=== PATIENT | female | born 1945 | race Caucasian/White ===

== ENCOUNTER 2020-04-17 08:09 | Inpatient (IN) | payer OTHER ==
[2020-04-13 15:22] VITALS: BMI 19.6
--- NOTE | 2020-04-17 07:55 | HP ---
Satellite [facility] - Chief Complaint Chief Complaint: right hip pain - Past Medical History Allergies/Adverse Reactions: Allergies Allergy/AdvReac Type Severity Reaction Status Date / Time Penicillins Allergy Severe Difficulty Verified 04/13/20 15:11 Breathing - Current Medications Current Medications: Home Medications Medication Instructions Recorded Calcium Carbonate [Calcium] 500 mg PO DAILY 04/13/20 Multivitamins [Tab-A-Vit -] 1 tab PO DAILY 04/13/20 Triamterene/Hydrochlorothiazid 1 each PO DAILY 04/13/20 [Dyazide 37.5-25 Capsule] Satellite Physical Exam - Physical Examination General Appearance: Well Nourished, Well Developed, Alert & Oriented x3 ENT: Clear Lung: Normal air movement Extremities: Other (right hip- + ttp ,decr rom ,nvi, xrays show grade 4 hip djd) Neurological: Intact, Alert, Oriented Satellite Impression/Plan - Impression/Plan Impression: right hip djd Operative Procedure: right rupinder thr Date to be Performed: 04/17/20
[~2020-04-17 08:09] MED LIST: CEFAZOLIN 2 GM in DEXTROSE 5%-WATER - 50 ML IVPB ONE; CELECOXIB 200 MG CAPSULE PO ONE; TRANEXAMIC ACID 1000 MG/10 ML VIAL IVPUSH ONE
--- OUTSIDE RECORDS SUMMARY | 2020-04-17 08:13 | XMS ---
:1945 Author Organization [facility] Support Name Relationship Address Phone NONE, [place] [address] [place] Unavailable [address] [place] [address] CALL, SANCHEZ [place] [address] Re-disclosure Warning The records that you are about to access may contain information from federally- assisted alcohol or drug abuse programs. If such information is present, then the following federally mandated warning applies: This information has been disclosed to you from records protected by federal confidentiality rules (42 CFR part 2). The federal rules prohibit you from making any further disclosure of this information unless further disclosure is expressly permitted by the written consent of the person to whom it pertains or as otherwise permitted by 42 CFR part 2. A general authorization for the release of medical or other information is NOT sufficient for this purpose. The Federal rules restrict any use of the information to criminally investigate or prosecute any alcohol or drug abuse patient.The records that you are about to access may contain highly sensitive health information, the redisclosure of which is protected by Article 27-F of the [facility] Public Health law. If you continue you may haveaccess to information: Regarding HIV / AIDS; Provided by facilities licensed or operated by the [facility] Office of Mental Health; or Provided by the [facility] Office for People With Developmental Disabilities. If such information is present, then the following [facility] mandated warning applies: This information has been disclosed to you from confidential records which are protected by state law. State law prohibits you from making any further disclosure of this information without the specific written consent of the person to whom it pertains, or as otherwise permitted by law. Any unauthorized further disclosure in violation of state law may result in a fine or detention sentence or both. A general authorization for the release of medical or other information is NOT sufficient authorization for further disclosure. Insurance Providers Payer name Policy type Policy ID Covered Covered republican's Policy P medina / Coverage republican ID relationship to Gilli[employer] Inf ormation type gilliam LOCAL [id number] - [id number] [facility] [id number] [facility] Results ID Date Data Source [id number] 04/13/2020 12:10:00 PM EDT [facility] Name Value Range Interpretation Description Data Sup porting Code Source(s) Document(s ) SARS [facility] coronavirus 2 RNA This lab was ordered by [facility] and reported by [facility]. Procedure
[2020-04-17] MEDS ORDERED: ePHEDrine SULFATE 50 MG/1 ML AMPULE ONE (08:23)
[2020-04-17] MEDS ORDERED: SUCCINYLCHOLINE CHLORIDE 200 MG/10 ML SYRINGE ONE (08:23)
[2020-04-17] MEDS ORDERED: DEXAMETHASONE SOD PHOSPHATE 4 MG/1 ML VIAL ONE ×2 (08:23→10:15)
[2020-04-17] MEDS ORDERED: ONDANSETRON 4 MG/2 ML VIAL ONE ×2 (08:23→10:15)
[2020-04-17] MEDS ORDERED: PHENYLEPHRINE HCL 10 MG/1 ML SINGLE DOSE VIAL ONE ×2 (08:23→08:29)
[2020-04-17] MEDS ORDERED: ceFAZolin SODIUM 1 GM VIAL ONE ×2 (08:24→08:31)
[2020-04-17] MEDS ORDERED: SODIUM CHLORIDE 0.9% P/F 10 ML VIAL IJ ONE (08:24)
[2020-04-17] MEDS ORDERED: VANCOMYCIN 1,000 MG VIAL (RESTRICTED TO ID ONLY) ONE (08:31)
[2020-04-17] MEDS ORDERED: BUPIVACAINE HCL/PF 0.5% (5 MG/ML) 30 ML VIAL IJ ONE (08:59)
[2020-04-17] MEDS ORDERED: MIDAZOLAM HCL 2 MG/2 ML SINGLE DOSE VIAL ONE (08:59)
[2020-04-17] MEDS ORDERED: EPINEPHrine/PF 1 MG/1 ML (1:1,000) AMPULE ONE (08:59)
[2020-04-17] MEDS ORDERED: ONDANSETRON 4 MG/2 ML VIAL IVPUSH PRN (09:38)
[2020-04-17] MEDS ORDERED: MAG HYDROX/AL HYDROX/SIMETH 30 ML UNIT-DOSE CUP PO PRN (09:38)
[2020-04-17] MEDS ORDERED: MAGNESIUM HYDROX 2400MG/30ML ORAL SUSPENSION 30 ML CUP PO PRN (09:38)
[2020-04-17] MEDS ORDERED: LACTATED RINGERS SOLUTION 1,000 ML IV SCH (09:45)
[2020-04-17] MEDS ORDERED: TRANEXAMIC ACID 1000 MG/10 ML VIAL ONE (10:15)
[2020-04-17] MEDS ORDERED: VANCOMYCIN 1,000 MG VIAL (RESTRICTED TO ID ONLY) IVPB ONE (10:20)
--- NOTE | 2020-04-17 11:04 | OP ---
Operative Note - Note: Operative Date: 04/17/20 (taisha) Pre-Operative Diagnosis: right hip djd Operation: right rupinder thr Post-Operative Diagnosis: Same as Pre-op Surgeon: Aris Rubio Substation Operator Apprentice: Shahab Richardson Anesthesiologist/ROLLED GLASS CROSSCUTTER: Barney Allen Anesthesia: Spinal, Local Specimens Removed: femoral head Estimated Blood Loss (mls): 50
[2020-04-17] MEDS ORDERED: traMADol HCL 50 MG TABLET PO PRN (11:48)
[2020-04-17] MEDS ORDERED: oxyCODONE HCL 5 MG TABLET PO PRN ×2 (11:48)
[2020-04-17] MEDS: TRIAMTERENE AND HCTZ - 37.5 MG/25 MG CAPSULE PO SCH (13:13)
[2020-04-17] MEDS: ACETAMINOPHEN 325 MG TABLET (FP) PO SCH ×2 (13:13→23:00)
--- NOTE | 2020-04-17 16:29 | SPEC ---
DATE OF OPERATION: 04/17/2020 PREOPERATIVE DIAGNOSIS: Degenerative joint disease right hip. POSTOPERATIVE DIAGNOSIS: Degenerative joint disease right hip. PROCEDURE PERFORMED: Right total hip replacement with robotic-assisted navigation (MAKOplasty). SURGICAL ATTENDING: Aris Rubio MD MANAGER TRAINING: ELMER Thompson ANESTHESIA: Regional and spinal. CLOSURE: A [place] total hip system with a 52-mm Trident II press-fit acetabular shell, a number 6 Accolade II femoral stem and a ceramic MDM insert. Number 1 Vicryl for fascia, 0 and 2-0 subcutaneous, 3-0 V-Loc for skin, 4-0 undyed Vicryl for pin sites. ESTIMATED BLOOD LOSS: Less than 100 mL. COMPLICATIONS: None. CONDITION: To the recovery room in stable condition. DESCRIPTION OF PROCEDURE: The patient was taken to the operating room on April 17, 2020. General and regional anesthesia was administered by the anesthesiologist. IV Kefzol and TXA were administered prophylactically prior to the case. The patient was placed in the lateral decubitus position will all prominences well-padded. The right hip area was prepped and draped in the usual sterile fashion. Using 3 small stab incisions over the iliac crest, 3 threaded pins were drilled in power fashion through the 2 tables of the crest. These pins were fastened and the navigation array for the CAROL navigation system. Next, a 12 to 15-cm curved longitudinal incision over the posterolateral aspect of the greater trochanter was incised. Hemostasis was achieved with Bovie cautery. Sharp dissection was carried down to level of the fascia. The fascia was opened the entire length of the incision, spreading the fibers of the gluteus roman in the direction of origin. A Charnley retractor was placed in this layer. Care was taken not to impale the sciatic nerve. The short external rotators were detached off the insertion of the greater trochanter and peeled off the capsule. A posterior capsulotomy was then performed. A check point was malleted into the greater trochanter and a point on the inferior pole of the patella was obtained as well. These 2 points were used to assess the preoperative offset and limb lengths of the hip. The hip was then dislocated. The femoral neck was then osteotomized down to the appropriate level as directed by the navigation device. Anterior and posterior retractors were placed, exposing the acetabulum. A circumferential labral excision was performed. A check point was malleted into the acetabulum as well. Multiple sites inside the acetabulum and around the rim were utilized to register the acetabulum with the navigation device. An excellent registration of less than 0.5 mm was obtained. The hip was then reamed with the appropriate reamer down to the appropriate depth, with the appropriate orientation and version as assessed on our preoperative plan for this patient. The reamer was removed and the acetabulum was inspected to have good bleeding surfaces throughout. The real acetabular cup was then malleted down into place, with the holes in the appropriate position, until an excellent fixation was obtained. No screws were necessary. The navigation device ensured appropriate orientation and version, with the depth as predetermined. The appropriate liner was then clipped into place. Attention was directed to the femur. The proximal femur was prepared by use a box chisel, a canal finder and serial broaches until the broach achieved excellent rigidity in the proximal femur with the appropriate version being applied. A calcar planer was used to smooth off the calcar flush with the trial components. A trial reduction with the appropriate head was done, and the hip was reduced. The hip was taken through a range of motion from full extension with external rotation to marked flexion, and was stable at 90 degrees of flexion. It was stable to marked abduction and internal rotation, with a positive hang test and negative telescoping. Limb lengths were ascertained visually as well as with the navigation device to be within the targeted range for this patient. The trial component was removed. The real component was then malleted into place. The head was cold welded to the trunnion, and the hip was reduced. Range of motion, stability and limb lengths were as described in the trial component. Then the hip was pulse antibiotic irrigated. Vancomycin powder was placed in the hip joint. The capsule was closed. The fascia was then closed as well using number 1 Vicryl interrupted suture, 0 and 2-0 subcutaneous, and 3-0 V-Loc for the skin. 4-0 undyed Vicryl was used to close the pin sites after the pins were removed. All check points were also removed. Sterile Aquacel dressing was applied. The patient was awakened from anesthesia and transferred into the supine position. Bilateral SCDs and an abduction pillow were placed. X-rays revealed excellent position of the components. The patient was transferred to the recovery room in stable condition, with no complications. Estimated blood loss was less than 100 mL. Mirella [id number]
[2020-04-17] MEDS: CEFAZOLIN 2 GM/D5W 2 GRAM/50 ML ML IVPB SCH (17:44)
[2020-04-17] MEDS: SENNOSIDES/DOCUSATE COMBO (SENNA PLUS) TABLET (UD) PO SCH (21:13)
[2020-04-18] MEDS: CEFAZOLIN 2 GM/D5W 2 GRAM/50 ML ML IVPB SCH (01:23)
[2020-04-18] MEDS: ACETAMINOPHEN 325 MG TABLET (FP) PO SCH ×4 (05:34→17:59)
[2020-04-18 08:16] LABS: HEMATOCRIT 35.1 % (32.4-45.2); HEMOGLOBIN 11.7 GM/dl (10.7-15.3); MCH 30.8 pg (25.7-33.7); MCHC 33.3 g/dl (32.0-36.0); MEAN CELL VOLUME 92.5 fl (80-96); MEAN PLT VOLUME 8.6 fl (7.5-11.1); PLATELET COUNT 202 K/MM3 (134-434); RDW 12.1 % (11.6-15.6); WHITE BLOOD COUNT 17.5 K/mm3 (4.0-10.8)
[2020-04-18] MEDS: SENNOSIDES/DOCUSATE COMBO (SENNA PLUS) TABLET (UD) PO SCH ×3 (08:28→21:42)
[2020-04-18] MEDS: MULTIVITAMINS (DAILY MVI) TABLET (FP) PO SCH ×2 (08:29→09:31)
[2020-04-18] MEDS: PANTOPRAZOLE 40 MG TABLET PO SCH ×2 (08:29→09:30)
--- NOTE | 2020-04-18 08:39 | PN ---
Progress Note (short form) - Note Progress Note: Ortho Pt seen and examined s/p right rupinder thr pod #1 Selected Entries 04/18/20 06:00 Temperature 97.9 F Pulse Rate 65 Respiratory 18 Rate Blood Pressure 104/50 L Laboratory Tests 04/18/20 06:55 WBC 17.5 H Hgb 11.7 Hct 35.1 Plt Count 202 dressing c/d/i, calf soft, nt nvi a/p PT hip precautions dvt ppx pain control d/c home tomorrow if stable
[2020-04-18] MEDS: TRIAMTERENE AND HCTZ - 37.5 MG/25 MG CAPSULE PO SCH (09:29)
[2020-04-18] MEDS: ASPIRIN 325 MG TABLET PO SCH (09:29)
--- NOTE | 2020-04-18 15:14 | PN ---
Progress Note (short form) - Note Progress Note: 74F POD1 s/p R THR under spinal anesthetic with peripheral nerve blocks. Pt states that pain is well controlled and reports no anesthetic complications. Continue current regimen.
[2020-04-19] MEDS: ACETAMINOPHEN 325 MG TABLET (FP) PO SCH ×5 (02:32→18:45)
[2020-04-19 07:40] LABS: HEMATOCRIT 36.8 % (32.4-45.2); HEMOGLOBIN 12.3 GM/dl (10.7-15.3); MCH 31.1 pg (25.7-33.7); MCHC 33.5 g/dl (32.0-36.0); MEAN CELL VOLUME 92.9 fl (80-96); MEAN PLT VOLUME 8.1 fl (7.5-11.1); PLATELET COUNT 202 K/MM3 (134-434); RBC 3.97 M/mm3 (3.60-5.2); RDW 12.2 % (11.6-15.6)
[2020-04-19] MEDS: ASPIRIN 325 MG TABLET PO SCH (08:44)
--- NOTE | 2020-04-19 09:10 | PN ---
Progress Note (short form) - Note Progress Note: Ortho Pt seen and examined s/p right rupinder thr pod #2. Pt feeling drowsy after taking oxycodone. Denies KONG, SOB, CP, N/V Selected Entries 04/18/20 06:00 Temperature 97.9 F Pulse Rate 65 Respiratory 18 Rate Blood Pressure 104/50 L Laboratory Tests 04/18/20 06:55 WBC 17.5 H Hgb 11.7 Hct 35.1 Plt Count 202 dressing c/d/i, calf soft, nt nvi a/p PT hip precautions dvt ppx pain control d/c home today if stable
[2020-04-19] MEDS: TRIAMTERENE AND HCTZ - 37.5 MG/25 MG CAPSULE PO SCH (09:52)
[2020-04-19] MEDS: PANTOPRAZOLE 40 MG TABLET PO SCH (09:53)
[2020-04-19] MEDS: MULTIVITAMINS (DAILY MVI) TABLET (FP) PO SCH (09:53)
[2020-04-19] MEDS: SENNOSIDES/DOCUSATE COMBO (SENNA PLUS) TABLET (UD) PO SCH ×2 (09:53→21:01)
--- NOTE | 2020-04-19 12:46 | PATH ---
Surgical Pathology Report Patient Name: ETHAN SELF Med. Rec. #: [id number] /Age/Gender: 1945 (Age: 74) / F Account: [id number] Location: [facility] MED-SURG Taken: 04/17/2020 Received: 04/17/2020 Reported: 04/19/2020 Physicians: Aris Rubio M.D. Specimen(s) Received RIGHT FEMORAL HEAD Clinical History Right hip osteoarthritis Final Diagnosis BONE, FEMORAL HEAD, RIGHT, TOTAL HIP REPLACEMENT MAKOPASTY: BONE WITH DEGENERATIVE JOINT DISEASE AND SYNOVIUM. Electronically Signed Khushi Lucero M.D. Gross Description Received in formalin, labeled "right femoral head," is a 4.5 x 4 cm femoral head with an attached femoral neck. The margin of resection is jagged. Marked areas of eburnation identified which measures 4 cm. The remaining articular surface is granular. The underlying trabecular bone is yellow and hard. A healthcare representative section is submitted in one cassette, following decalcification. MLSZ/04/17/2020 [place]/04/17/2020
[2020-04-19] MEDS ORDERED: PT OWN MED DRAWER 7, Y5N ONE (13:20)
[2020-04-20] MEDS: ACETAMINOPHEN 325 MG TABLET (FP) PO SCH ×2 (01:28→06:27)
--- NOTE | 2020-04-20 08:17 | PN ---
Progress Note (short form) - Note Progress Note: Ortho Pt seen and examined s/p right rupinder thr pod #3. Feeling much better today. Selected Entries 04/19/20 04/20/20 08:59 06:00 Temperature 98.9 F 98.5 F Pulse Rate 86 65 Respiratory 18 18 Rate Blood Pressure 133/51 L 114/50 L Laboratory Tests 04/19/20 07:14 WBC 15.0 H Hgb 12.3 Hct 36.8 Plt Count 202 dressing c/d/i, calf soft, nt nvi a/p PT hip precautions dvt ppx pain control d/c home today \ f/u in 1 week
--- NOTE | 2020-04-20 08:18 | DS ---
Physical Examination Vital Signs: Vital Signs Temperature 98.5 F 04/20/20 06:00 Pulse Rate 65 04/20/20 06:00 Respiratory Rate 18 04/20/20 06:00 Blood Pressure 114/50 L 04/20/20 06:00 O2 Sat by Pulse Oximetry (%) 100 04/20/20 06:00 Labs: CBC, BMP 04/19/20 07:14 Discharge Summary Problems reviewed: Yes Reason For Visit: RT TOTAL HIP REPLACEMENT Procedures: Principal: right thr Hospital Course: admitted for elective right rupinder thr, post-op per protocol, stable for d/c Condition: Good - Instructions Diet, Activity, Other Instructions: Post-op Instructions-Total Hip Replacement Call the office for a follow-up appointment in 1 week - [phone] Aspirin 325mg daily for 6 weeks. Pain medication was sent into your [email or web address]. Apply Graduated Compression Stockings (TEDs) to both lower extremities- remove daily for hygiene ONLY Apply Sequential Compression Device (SCDs) to both Lower extremities remove for PT and hygiene ONLY Apply cold packs to affected area for 15 minutes every 2 hours. Physical Therapist will come to your home for the first 5 days. You will be set up with outpatient PT at your first post-operative visit. Patient may ambulate as tolerated-encourage self care (at least every 2-3 hours while awake) with walker or cane Maintain Aquacel (waterproof) dressing to operative wound (will be removed by surgeon at first office visit) Shower with Aquacel dressing in place-if Aquacel integrity compromised, remove and apply dry sterile dressing and notify Orthopedist. DO NOT SHOWER unless Orthopedists approves without Aquacel dressing CONTACT THE OFFICE FOR ANY CHANGE IN YOUR CONDITION (for example-fever greater than 102 degrees, excessive bleeding from operative site, purulent drainage, severe swelling or pain) GO TO THE EMERGENCY ROOM IF THERE IS A MEDICAL EMERGENCY Hip Precautions: * Keep a rolled towel under affected heel while in bed or chair (to keep knee in extension) * Dependent upon approach: * Posterior - do not cross legs; do not sit on low chairs or toilets. * If you have any questions, please do not hesitate to call the office - [phone]. Referrals: Aris Rubio MD [Staff Physician] - Disposition: VNS/HOME HEALTH CARE - Home Medications Comprehensive Discharge Medication List: Ambulatory Orders Calcium Carbonate [Calcium] 500 mg PO DAILY 04/13/20 Multivitamins [Multivit ([facility] Formulary)] 1 tab PO DAILY 04/13/20 Triamterene/Hydrochlorothiazid [Dyazide 37.5-25 Capsule] 1 each PO DAILY 04/13/20 Aspirin [ASA -] 325 mg PO DAILY@0800 tablet 04/17/20 Oxycodone HCl/Acetaminophen [Percocet 5-325 mg Tablet -] 1 - 2 tab PO Q6H #50 tab MDD 8 04/17/20 Tramadol HCl 50 mg PO Q6H #50 tablet MDD 4 04/20/20
[2020-04-20] MEDS: ASPIRIN 325 MG TABLET PO SCH (08:22)
[2020-04-20] MEDS: TRIAMTERENE AND HCTZ - 37.5 MG/25 MG CAPSULE PO SCH (09:39)
[2020-04-20] MEDS: MULTIVITAMINS (DAILY MVI) TABLET (FP) PO SCH (09:40)
[2020-04-20] MEDS: SENNOSIDES/DOCUSATE COMBO (SENNA PLUS) TABLET (UD) PO SCH (09:40)
[2020-04-20] MEDS: PANTOPRAZOLE 40 MG TABLET PO SCH (09:40)
[2020-04-20 14:09] VITALS: BP 111/79; PULSE 79; TEMP 98.6
[2020-04-20] MEDS ORDERED: PT OWN MED DRAWER 7, Y5N ONE (16:04)
== END 2020-04-20 16:18 | disposition home health service (06) | DRG 470 ==
LOC: FM/S 08:09
PROVIDERS: ADMIT Orthopaedic Surgery; ATTEND Orthopaedic Surgery
PROC: 8E0Y0CZ Robotic Assisted Procedure of Lower Extremity, Open Approach (ICD-10-PCS; 2020-04-17)
PROC: 0SR90JZ Replacement of Right Hip Joint with Synthetic Substitute, Open Approach (ICD-10-PCS; principal; 2020-04-17 10:06)
DX: M16.11 Unilateral primary osteoarthritis, right hip (principal); Z88.0 Allergy status to penicillin
CPT/HCPCS: 36415; 73502-TC-RT-FY; 85027; 86803; 87389; 88305-TC; 88311-TC; 94760; 97010-GP; 97116-GP; 97163-GP